=== PATIENT | female | born 1990 | race Caucasian/White ===

== ENCOUNTER 2017-12-01 17:40 | Outpatient (CLI) | payer MEDICAID ==
[2017-12-01 18:40] LABS: APPEARANCE,URINE CLEAR; BILIRUBIN,URINE NEGATIVE (NEGATIVE); COLOR,URINE STRAW; GLUCOSE, URINE NEGATIVE (NEGATIVE); KETONES,URINE NEGATIVE (NEGATIVE); LEUKOCYTE ESTERASE,URINE NEGATIVE (NEGATIVE); NITRITE,URINE NEGATIVE (NEGATIVE); PROTEIN,URINE NEGATIVE (NEGATIVE); URINE SPECIFIC GRAVITY 1.006; UROBILINOGEN,URINE NEGATIVE mg/dL (<2.0)
[2017-12-01 19:04] LABS: URINE AMPHETAMINES SCREEN NEGATIVE; URINE BARBITURATES SCREEN NEGATIVE; URINE BENZODIAZEPINES SCREEN NEGATIVE; URINE COCAINE SCREEN NEGATIVE; URINE MARIJUANA (THC) SCREEN NEGATIVE; URINE METHADONE SCREEN NEGATIVE; URINE PHENCYCLIDINE SCREEN NEGATIVE
--- NOTE | 2017-12-01 20:51 | PROGRESS NOTE E ---
Progress Note NAME: CIARA STOKES : 1990 AGE: 27Y DATE: 12/01/2017 ROOM: SUBJECTIVE: The patient is a 27-year-old 4, para 3-0-03 at 26 weeks and 6 days gestational age, presents with a chief complaint of labial swelling that has been ongoing for a couple of weeks now. The patient per nursing staff denies any vaginal bleeding, leakage of fluid, or any contractions. The patient reports good movement. The patient denies any vaginal discharge, frequency, hesitancy, or urgency with urination. The patient has a history of bipolar disorder and is currently off medication. Has never started them in . Nursing staff has conveyed to me that the patient is slightly anxious upon presentation. Nursing staff reported to me that the patient was instituted on a strip and depicted heart tones of 135 beats per minute, basal heart rate for *------* was present accelerations and absent decelerations with moderate variability. The patient was put on Tocometer as well and depicted no contractions at all. The patient's body habitus was very slim. The patient denies any contractions. The patient was just concerned about her labial swelling. Nursing staff reported to me that they examined the labia and inspection revealed no signs of infection other than a mild labial swelling consistent with increased varicosity around the labia bilaterally. The patient was given labor precautions and reassurance that given her 4 and para 3 status with previous vaginal deliveries at 26 and 6 days currently that the patient is expected to have mild labial swelling. The patient can follow up with primary [facility] in a couple of days for further follow up and further inspection. Also her urinalysis was negative for any urinary tract infection. The patient's vital signs were stable, afebrile, normotensive, not tachycardic. The patient discharged with labor precautions and will have an appropriate follow up in a couple of days with primary OBGYN. DICTATING PHYSICIAN: Peggy Donaldson MD [id number] PHY#: [id number] 2013 ID: [id number] JOB#: [id number] ACCT: [id number] cc: >
== END 2017-12-01 19:08 | disposition home or self-care (01) ==
LOC: LC 17:40
PROVIDERS: ATTEND Obstetrics & Gynecology Gynecology
PROC: 4A1HXCZ Monitoring of Products of Conception, Cardiac Rate, External Approach (ICD-10-PCS; principal; 2017-12-01)
DX: O22.12 Genital varices in pregnancy, second trimester (principal); Z3A.26 26 weeks gestation of pregnancy
CPT/HCPCS: 80307; 81001

== ENCOUNTER 2018-02-04 19:33 | Outpatient (CLI) | payer MEDICAID ==
[2018-02-04] MEDS ORDERED: RINGERS SOLUTION,LACTATED 1,000 ML IV PRN (20:05)
[2018-02-04 20:31] LABS: APPEARANCE,URINE CLEAR; BILIRUBIN,URINE NEGATIVE (NEGATIVE); COLOR,URINE COLORLESS; GLUCOSE, URINE NEGATIVE (NEGATIVE); KETONES,URINE NEGATIVE (NEGATIVE); LEUKOCYTE ESTERASE,URINE NEGATIVE (NEGATIVE); NITRITE,URINE NEGATIVE (NEGATIVE); PROTEIN,URINE NEGATIVE (NEGATIVE); URINE SPECIFIC GRAVITY 1.003; UROBILINOGEN,URINE NEGATIVE mg/dL (<2.0)
[2018-02-04 20:56] LABS: URINE AMPHETAMINES SCREEN NEGATIVE; URINE BARBITURATES SCREEN NEGATIVE; URINE BENZODIAZEPINES SCREEN NEGATIVE; URINE COCAINE SCREEN NEGATIVE; URINE MARIJUANA (THC) SCREEN NEGATIVE; URINE METHADONE SCREEN NEGATIVE; URINE PHENCYCLIDINE SCREEN NEGATIVE
[2018-02-04] MEDS ORDERED: HYDROXYZINE PAMOATE 50 MG CAPSULE PO ONE (21:21)
[2018-02-04] MEDS ORDERED: HYDROXYZINE PAMOATE 50 MG CAPSULE ONE (21:24)
--- NOTE | 2018-02-04 21:46 | Non Stress Test Report ---
Non Stress Test Datetime Report Generated by CPN: 02/04/2018 21:45 DEMOGRAPHIC Test Number: 1 EGA NST: 36.0 INDICATION Indication for Study: Ordered by Provider URINE RESULTS Urine Protein, NST: Positive Urine Ketones - NST: Negative Urine Glucose - NST: Negative Urine Blood - NST: Negative MONITORING Monitor Explained: Monitor Explained; Test Explained; Patient Verbalized Understanding Time on Monitor: 02/04/2018 20:35 Time off Monitor: 02/04/2018 21:07 NST Duration: 32 NST INTERVENTIONS NST Interventions: PO Hydration; IV Fluids; Reposition Patient Physician Notified NST: Dr. Luciano BABY A: [id number] BABY A Movement : Present Contraction Frequency : 2-5 FHR Baseline : 135 Accelerations : 15X15 Decelerations : None Variability : Moderate 6-25bpm NST Review: Meets Criteria for Reactive NST NST Review and Verified By : Max Zarate RN NST Results: Reactive NST REPORT Report Trigger: Send Report
== END 2018-02-04 21:35 | disposition home or self-care (01) ==
LOC: LC 19:33
PROVIDERS: ATTEND Obstetrics & Gynecology
PROC: 4A1HXCZ Monitoring of Products of Conception, Cardiac Rate, External Approach (ICD-10-PCS; principal; 2018-02-04)
DX: O47.03 False labor before 37 completed weeks of gestation, third trimester (principal); Z3A.36 36 weeks gestation of pregnancy
CPT/HCPCS: 59025; 81001; 80307; J3490

== ENCOUNTER 2018-02-14 20:05 | Outpatient (CLI) | payer MEDICAID ==
[2018-02-14 20:47] LABS: APPEARANCE,URINE SLIGHTLY-CLOUDY; BILIRUBIN,URINE NEGATIVE (NEGATIVE); COLOR,URINE YELLOW; GLUCOSE, URINE NEGATIVE (NEGATIVE); KETONES,URINE NEGATIVE (NEGATIVE); LEUKOCYTE ESTERASE,URINE LARGE (NEGATIVE); NITRITE,URINE NEGATIVE (NEGATIVE); PROTEIN,URINE NEGATIVE (NEGATIVE); URINE SPECIFIC GRAVITY 1.006; UROBILINOGEN,URINE NEGATIVE mg/dL (<2.0)
[2018-02-14 21:05] LABS: URINE AMPHETAMINES SCREEN NEGATIVE; URINE BARBITURATES SCREEN NEGATIVE; URINE BENZODIAZEPINES SCREEN NEGATIVE; URINE COCAINE SCREEN NEGATIVE; URINE MARIJUANA (THC) SCREEN NEGATIVE; URINE METHADONE SCREEN NEGATIVE; URINE PHENCYCLIDINE SCREEN NEGATIVE
[2018-02-14] MEDS ORDERED: HYDROXYZINE PAMOATE 50 MG CAPSULE ONE (21:33)
[2018-02-14] MEDS ORDERED: HYDROXYZINE PAMOATE 50 MG CAPSULE PO ONE (21:34)
--- NOTE | 2018-02-17 12:03 | Non Stress Test Report ---
Non Stress Test Datetime Report Generated by CPN: 02/17/2018 12:02 DEMOGRAPHIC EGA NST: 37.3 INDICATION Indication for Study: Other Indication for Study (NST) Other: labor check VITAL SIGNS Temperature - NST: 98.3 Pulse - NST: 142 RESP - NST: 16 NBPSYS NST: 134 NBPDIA NST: 84 MONITORING Monitor Explained: Monitor Explained; Test Explained; Patient Verbalized Understanding Time on Monitor: 02/14/2018 20:20 Time off Monitor: 02/14/2018 21:20 NST Duration: 60 NST INTERVENTIONS NST Interventions: None Physician Notified NST: Da Silva (Annotations: Data stored by CPN on behalf of user) BABY A: [id number] BABY A Movement : Present Contraction Frequency : 1-5 irregular FHR Baseline : 150 Accelerations : 15X15 Decelerations : None Variability : Moderate 6-25bpm NST Review: Meets Criteria for Reactive NST NST Review and Verified By : NDoyle RN NST Results: Reactive NST REPORT Report Trigger: Send Report
== END 2018-02-14 21:39 | disposition home or self-care (01) ==
LOC: LC 20:05
PROVIDERS: ATTEND Obstetrics & Gynecology Gynecology
PROC: 4A1HXCZ Monitoring of Products of Conception, Cardiac Rate, External Approach (ICD-10-PCS; principal; 2018-02-14)
DX: O47.1 False labor at or after 37 completed weeks of gestation (principal); Z3A.37 37 weeks gestation of pregnancy
CPT/HCPCS: 81005; 80307; 84112; 59025; J3490

== ENCOUNTER 2018-02-17 12:30 | Outpatient (CLI) | payer MEDICAID ==
--- NOTE | 2018-02-17 13:16 | Non Stress Test Report ---
Non Stress Test Datetime Report Generated by CPN: 02/17/2018 13:16 DEMOGRAPHIC EGA NST: 37.6 INDICATION Indication for Study: Ordered by Provider MONITORING Monitor Explained: Monitor Explained; Test Explained; Patient Verbalized Understanding Time on Monitor: 02/17/2018 12:43 Time off Monitor: 02/17/2018 13:15 NST Duration: 32 NST INTERVENTIONS NST Interventions: None Physician Notified NST: Dr Youmger BABY A Movement : Present Contraction Frequency : none FHR Baseline : 145 Accelerations : 15X15 Decelerations : None Variability : Moderate 6-25bpm NST Review: Meets Criteria for Reactive NST NST Review and Verified By : Solo Stanley RN NST Results: Reactive NST REPORT Report Trigger: Send Report
[2018-02-17 13:48] LABS: APPEARANCE,URINE CLEAR; BILIRUBIN,URINE NEGATIVE (NEGATIVE); COLOR,URINE YELLOW; GLUCOSE, URINE NEGATIVE (NEGATIVE); KETONES,URINE NEGATIVE (NEGATIVE); LEUKOCYTE ESTERASE,URINE TRACE (NEGATIVE); NITRITE,URINE NEGATIVE (NEGATIVE); PROTEIN,URINE NEGATIVE (NEGATIVE); URINE SPECIFIC GRAVITY 1.008; UROBILINOGEN,URINE NEGATIVE mg/dL (<2.0)
[2018-02-17 14:19] LABS: URINE AMPHETAMINES SCREEN NEGATIVE; URINE BARBITURATES SCREEN NEGATIVE; URINE BENZODIAZEPINES SCREEN NEGATIVE; URINE COCAINE SCREEN NEGATIVE; URINE MARIJUANA (THC) SCREEN NEGATIVE; URINE METHADONE SCREEN NEGATIVE; URINE PHENCYCLIDINE SCREEN NEGATIVE
== END 2018-02-17 13:32 | disposition home or self-care (01) ==
LOC: LC 12:30
PROVIDERS: ATTEND Obstetrics & Gynecology
PROC: 4A1HXCZ Monitoring of Products of Conception, Cardiac Rate, External Approach (ICD-10-PCS; principal; 2018-02-17)
DX: O47.1 False labor at or after 37 completed weeks of gestation (principal); Z3A.37 37 weeks gestation of pregnancy
CPT/HCPCS: 59025; 80307; 81005; 84112

== ENCOUNTER 2018-02-20 19:30 | Inpatient (IN) | payer MEDICAID ==
[2018-02-20] MEDS ORDERED: OXYTOCIN 10 UNIT/ML VIAL ONE (19:54)
[2018-02-20] MEDS ORDERED: LIDOCAINE 1% INJ-PF (10 MG/ML) 30 ML SDV ONE (19:55)
[2018-02-20] MEDS ORDERED: OXYTOCIN/NORMAL SALINE 20 UNIT/1,000 ML RTUINJ ONE (19:55)
[2018-02-20] MEDS ORDERED: MISOPROSTOL 0.2 MG TABLET ONE (19:55)
[2018-02-20 20:01] LABS: APPEARANCE,URINE CLOUDY; BILIRUBIN,URINE NEGATIVE (NEGATIVE); GLUCOSE, URINE 150 mg/dL (NEGATIVE); KETONES,URINE NEGATIVE (NEGATIVE); LEUKOCYTE ESTERASE,URINE MODERATE (NEGATIVE); NITRITE,URINE NEGATIVE (NEGATIVE); PROTEIN,URINE 100 mg/dL (NEGATIVE)
[2018-02-20] MEDS ORDERED: FENTANYL/BUPIVACAINE/NS/PF 300 MCG/150 ML RTUINJ EPI ONE (20:07)
[2018-02-20] MEDS ORDERED: EPHEDRINE SULFATE INJ 50 MG/1 ML AMPULE ONE (20:07)
[2018-02-20] MEDS ORDERED: BUPIVACAINE HCL 0.5 % INJ/PF 30 ML SDV ONE (20:08)
--- NOTE | 2018-02-20 20:13 | Admission Physical ---
Datetime Report Generated by CPN: 02/20/2018 20:13 CURRENT ADMISSION Chief Complaint: Uterine Contractions Indication for Induction: Not Applicable Admit Impression : Active Labor Admit Plan: Admit to Unit; Initiate Labor Protocol ALLERGIES Medication Allergies: No Medication Allergies: No Known Allergies (02/14/2018) Latex: No Latex Allergies Food Allergies: n/a Environmental Allergies: n/a OBSTETRICAL HISTORY EDC: 03/04/2018 00:00 : 4 Para: 3 Term: 3 : 0 SAB: 0 IAB: 0 Ectopic: 0 Livin Cesareans: 0 VBACs: 0 Multiple Births: 0 Gestational Diabetes: No Rh Sensitization: No Incompetent Cervix: No BESSY: No Infertility: No ART Treatment: No Uterine Anomaly: No IUGR: No Hx Previous C/S: No Macrosomia: No Hx Loss/Stillborn: No PIH: No Hx : No Placenta Previa/Abruption: No Depression/PP Depression: Yes PTL/PROM: No Post Hemorrhage: No Current Procedures: Ultrasound Obstetrical History Comments: G1- 37wks G2- 37wks G3- 39wks G4-current SEE RECORDS Alcohol: No Marijuana : No Cocaine: No Other Illicit Drugs: No Cigarettes: Current Some Day Smoker. [id number] MEDICAL HISTORY Diabetes: No Blood Transfusion: No Pulmonary Disease (Asthma, TB): No Breast Disease: No Hypertension: No Insurance Counselor Surgery: No Heart Disease: No Hosp/Surgery: Yes Autoimmune Disorder: No Anesthetic Complications: No Kidney Disease: No Abnormal Pap Smear: No Neuro/Epilepsy: No Psychiatric Disorders: No Other Medical Diseases: No Hepatitis/Liver Disease: No Significant Family History: No Varicosities/Phlebitis: No Trauma/Violence : No Thyroid Dysfunction: No Medical History Comments: Depression, anemia, tonsillectomy, cranial sx at 6 months INFECTIOUS HISTORY Gonorrhea: No Genital Herpes: No Chlamydia: No Tuberculosis: No Syphilis: No Hepatitis: No HIV/AIDS Exposure: No Rash or Viral Illness: No HPV: No PHYSICAL EXAM General: Normal HEENT: Normal Neurologic: Normal Thyroid: Normal Heart: Normal Lungs: Normal Breast: Deferred Back: Normal Abdomen: Normal Genitourinary Exam: Normal Extremities: Normal DTRs: Normal Pelvic Type: Adequate Vital Signs: Reviewed VAGINAL EXAM Dilatation: 7 Effacement: 80 Station: 0 MEMBRANES Pooling: Negative Membranes: Intact FETUS A EGA: 38.2 FHR- Baseline: 150 Variability: Moderate 6-25bpm FHR Category: Category I Presentation: Vertex Admit Comment: She desires an epidural. PLANS FOR LABOR AND DELIVERY Labor and Delivery: None Pain Management: Epidural Feeding Preference: Formula Benefit of Breast Feed Discussed: Yes Circumcision: Yes INFORMED CONSENT Signature: with User ID: [email or web address]
[2018-02-20 20:14] LABS: COLOR,URINE PINK
[2018-02-20 20:16] LABS: ABSOLUTE EOSINOPHILS # (AUTO) 0.1 10^3/uL (0.0-0.6); ABSOLUTE LYMPHOCYTES (AUTO) 1.1 10^3/uL (0.5-4.7); ABSOLUTE NEUT (AUTO) 12.3 10^3/uL (1.7-8.2); BASOPHILS % (AUTO) 0.2 % (0-2); EOSINOPHILS % (AUTO) 0.5 % (0-6); HEMATOCRIT 28.4 % (36.0-47.0); HEMOGLOBIN 8.9 g/dL (12.0-15.5); LYMPHOCYTES % (AUTO) 7.5 % (13-45); MEAN CORPUSCULAR HEMOGLOBIN 19.9 pg (27.0-33.4); MEAN CORPUSCULAR HGB CONC 31.5 g/dL (32.0-36.0); MONOCYTES % (AUTO) 6.9 % (3-13); PLATELET COUNT 154 10^3/uL (150-450); RED BLOOD COUNT 4.48 10^6/uL (3.72-5.28); RED CELL DISTRIBUTION WIDTH 18.3 % (11.5-14.0); SEGMENTED NEUTROPHILS % (AUTO) 84.9 % (42-78); TOTAL CELLS COUNTED % (AUTO) 100 %; WHITE BLOOD COUNT 14.5 10^3/uL (4.0-10.5)
[2018-02-20] MEDS ORDERED: PROMETHAZINE HCL INJ 25 MG/1 ML VIAL IV PRN (20:16)
[2018-02-20] MEDS ORDERED: ACETAMINOPHEN 650 MG SUPP.RECT PR PRN (20:16)
[2018-02-20] MEDS ORDERED: PROMETHAZINE HCL 25 MG TABLET PO PRN (20:16)
[2018-02-20] MEDS ORDERED: BENZOCAINE/MENTHOL AEROSOL SPRAY 56 ML TOP PRN (20:16)
[2018-02-20] MEDS ORDERED: DIBUCAINE 1% OINTMENT 28 GM TP PRN (20:16)
[2018-02-20] MEDS ORDERED: ACETAMINOPHEN WITH CODEINE #3 TABLET PO PRN ×2 (20:16)
[2018-02-20] MEDS ORDERED: PSEUDOEPHEDRINE HCL 30 MG TABLET PO PRN (20:16)
[2018-02-20] MEDS ORDERED: NA PHOS,M-B/NA PHOS,DI-BA (ADULT) 133 ML ENEMA PR PRN (20:16)
[2018-02-20] MEDS ORDERED: DIPHENHYDRAMINE HCL 25 MG CAPSULE PO PRN (20:16)
[2018-02-20] MEDS ORDERED: MAGNESIUM HYDROXIDE SUSP 30 ML UDCUP PO PRN (20:16)
[2018-02-20] MEDS ORDERED: ZOLPIDEM TARTRATE 5 MG TABLET PO PRN (20:16)
[2018-02-20] MEDS ORDERED: DIPH/PERTUSS(ACELL)/TETANUS VAC/PF 0.5 ML SYR (>=10YO) IM PRN (20:16)
[2018-02-20] MEDS ORDERED: PROMETHAZINE HCL 25 MG SUPP.RECT PR PRN (20:16)
[2018-02-20] MEDS ORDERED: MEASLES,MUMPS&RUBELLA VACC/PF 0.5 ML VIAL SUBCUT PRN (20:16)
[2018-02-20] MEDS ORDERED: GLYCERIN/WITCH HAZEL LEAF 1 EACH MED..PAD TP PRN (20:16)
[2018-02-20] MEDS ORDERED: OXYTOCIN/NORMAL SALINE 20 UNIT/1,000 ML RTUINJ IV PRN (20:16)
[2018-02-20] MEDS ORDERED: BUPIVACAINE HCL 0.25 % INJ/PF (2.5 MG/1 ML) 30 ML VIAL ONE (20:19)
[2018-02-20 20:21] LABS: URINE AMPHETAMINES SCREEN NEGATIVE; URINE BARBITURATES SCREEN NEGATIVE; URINE BENZODIAZEPINES SCREEN NEGATIVE; URINE COCAINE SCREEN NEGATIVE; URINE MARIJUANA (THC) SCREEN NEGATIVE; URINE METHADONE SCREEN NEGATIVE; URINE PHENCYCLIDINE SCREEN NEGATIVE
[2018-02-20 20:33] LABS: MEAN CORPUSCULAR VOLUME 63 fl (80-97)
[2018-02-20 20:34] LABS: ANISOCYTOSIS 2+; HYPOCHROMASIA 2+; OVALOCYTES SLIGHT; PLATELET COMMENT ADEQUATE; POLYCHROMASIA SLIGHT; TOXIC GRANULATION 1+
--- NOTE | 2018-02-21 00:22 | Delivery Summary ---
Del Sum A-C Datetime Report Generated by CPN: 02/21/2018 00:22 DELIVERY PERSONNEL DELIVERY PERSONNEL: [id number] Delivery Doctor:: Piyush Luciano MD Labor and Delivery Nurse:: Carly Cardenas RN Labor and Delivery Nurse:: Abiola Donohue RN Federal Judicial Law Clerk/CENTRIFUGAL DRIER OPERATOR: Meaghan Ngo, ENGINEERING ADMINISTRATOR MATERNAL INFORMATION Delivery Anesthesia: Epidural Medications After Delivery: Pitocin Drip 20 Units/1000ml NSS Estimated Blood Loss (ml): 125 Maternal Complications: None LABOR SUMMARY EDC: 03/04/2018 00:00 No. Babies in Womb: 1 Attempted: No Labor Anesthesia: Epidural LABOR INFORMATION Reason for Induction: Not Applicable Onset of Labor: 02/20/2018 19:40 Complete Dilatation: 02/20/2018 21:05 Oxytocin: N/A Group B Beta Strep: neg Antibiotics # of Doses: N/A Antibiotics Time of Last Dose: N/A Name of Antibiotic Given: N/A Steroids Given: None Reason Steroids Not Administered: Not Applicable MEMBRANES Membranes Rupture Method: Artificial Rupture of Membranes: 02/20/2018 20:55 Length of Rupture (hr): 0.23 Amniotic Fluid Color: Clear Amniotic Fluid Amount: Moderate Amniotic Fluid Odor: Normal STAGES OF LABOR Stage 1 hr: 1 Stage 1 min: 25 Stage 2 hr: 0 Stage 2 min: 4 Stage 3 hr: 0 Stage 3 min: 43 Total Time in Labor hr: 2 Total Time in Labor min: 12 VAGINAL DELIVERY Episiotomy: None Laceration #1: Periurethral Laceration Extension #1: N/A Laceration #2: None Laceration Extension #2: N/A Laceration #3: None Laceration Extension #3: N/A Laceration Repair: Yes Laceration Repair Note: small laceration closed with one 3-0 chromic suture Sponge Count Correct: Yes Sharps Count Correct: Yes CSECTION DELIVERY Primary Indication: N/A Secondary Indication: N/A CSection Incidence: N/A Labor: N/A Elective: N/A CSection Incision: N/A BABY A INFORMATION Infant Delivery Date/Time: 02/20/2018 21:09 Method of Delivery: Vaginal Born in Route : No : N/A Forceps: N/A Vacuum Extraction: N/A Shoulder Dystocia : No PRESENTATION/POSITION BABY A Presentation: Cephalic Cephalic Presentation: Vertex Vertex Position: Left Occipital Anterior Breech Presentation: N/A PLACENTA INFORMATION BABY A Placenta Delivery Time : 02/20/2018 21:52 Placenta Method of Delivery: Spontaneous Placenta Status: Delivered SCORES BABY A Heart Rate 1 min: >100 bpm Resp Effort 1 min: Slow, Irregular Reflex Irritability 1 min: Cough or Sneeze or Pulls Away Muscle Tone 1 min: Active Motion Color 1 min: Blue/Pale Resuscitation Effort 1 min: Tactile Stimulation SCORE 1 MIN: 7 Heart Rate 5 min: >100 bpm Resp Effort 5 min: Slow, Irregular Reflex Irritability 5 min: Cough or Sneeze or Pulls Away Muscle Tone 5 min: Active Motion Color 5 min: Body [place], Extremities Blue Resuscitation Effort 5 min: Tactile Stimulation SCORE 5 MIN: 8 INFORMATION BABY A Gestational Age at Delivery: 38.2 Gestational Status: Early Term- 37- 38.6 Weeks Infant Outcome : Liveborn Condition : Stable Sex: Male IDENTIFICATION BABY A Infant Verification Date/Time: 02/20/2018 21:38 ID Band Number: [id number] Mother's Name Verified: Yes Infant RN Verifying : S. Lattibeaudeir, RNC _ A. Misyak, RN WEIGHT/LENGTH BABY A Infant Birthweight (gm): 3520 Weight (lb): 7 Weight (oz): 12 Infant Length (in): 19.50 Infant Length (cm): 49.53 CORD INFORMATION BABY A No. Cord Vessels: 3 Nuchal Cord : N/A Cord Blood Taken: Yes-For Storage (Mom's Blood type +) Infant Suction: Mouth; Nose ASSESSMENT BABY A Infant Complications: None Physical Findings at Delivery: Bruising Infant Respirations: Grunting Pickling Machine Operator/ALS Called : No Care By: S. Lattibeachaz, RNC _ A. Misyak, RN Transferred To: [facility] BABY B INFORMATION : N/A SIGNATURES Signature: with User ID: [email or web address]
[2018-02-21] MEDS ORDERED: ACETAMINOPHEN WITH CODEINE #3 TABLET ONE (02:04)
[2018-02-21] MEDS: IBUPROFEN 800 MG TABLET PO SCH ×4 (02:25→22:07)
--- NOTE | 2018-02-21 02:50 | Warning Signs in Babies ---
VOD Warning Signs Datetime Report Generated by [facility]: 02/21/2018 02:49 VOD#608 -Warning Signs in Babies: Viewed with Parent(s)/Family (02/21/2018 02:00:Carly Cardenas RN)
[2018-02-21] MEDS: FAMOTIDINE 20 MG TABLET PO SCH ×3 (04:41→22:06)
[2018-02-21] MEDS ORDERED: IBUPROFEN 800 MG TABLET ONE (05:54)
[2018-02-21 08:06] LABS: HEMATOCRIT 26.8 % (36.0-47.0); HEMOGLOBIN 8.4 g/dL (12.0-15.5); MEAN CORPUSCULAR HEMOGLOBIN 19.9 pg (27.0-33.4); MEAN CORPUSCULAR HGB CONC 31.4 g/dL (32.0-36.0); MEAN CORPUSCULAR VOLUME 63 fl (80-97); PLATELET COUNT 150 10^3/uL (150-450); RED BLOOD COUNT 4.23 10^6/uL (3.72-5.28); WHITE BLOOD COUNT 17.3 10^3/uL (4.0-10.5)
[2018-02-21] MEDS: FERROUS SULFATE 325 MG TABLET PO SCH ×2 (10:11→18:37)
[2018-02-21] MEDS: SENNOSIDES/DOCUSATE 8.6-50 MG 1 EACH TABLET PO SCH (10:11)
[2018-02-21] MEDS: DOCUSATE SODIUM 100 MG CAPSULE PO SCH ×2 (10:11→18:37)
[2018-02-21] MEDS: PRENATAL VITAMIN W DHA CAPSULE PO SCH (10:11)
[2018-02-21 12:34] LABS: PATH REVIEW PATHOLOGIST REVIEWED
[2018-02-22] MEDS: IBUPROFEN 800 MG TABLET PO SCH (06:32)
--- NOTE | 2018-02-22 09:32 | PDOC DISCHARGE SUMMARY ---
Final Diagnosis Discharge Date: 02/22/18 - PP Day #2, doing well, states is planning on giving this baby to her sister to adopt. Sister is in the room with a baby arm band on. Bottlefeeding, A+ - Final Diagnosis (2) (normal spontaneous vaginal delivery) Is this a current diagnosis for this admission?: Yes (3) Anemia, Is this a current diagnosis for this admission?: Yes Discharge Data - Discharge Medication Prescriptions: Ferrous Sulfate [Feosol 325 mg Tablet] 325 mg PO DAILY #30 tablet Ibuprofen [Motrin 800 mg Tablet] 800 mg PO Q8 #60 tablet Home Medications: Ferrous Sulfate [Feosol 325 mg Tablet] 325 mg PO DAILY #30 tablet 02/22/18 Ibuprofen [Motrin 800 mg Tablet] 800 mg PO Q8 #60 tablet 02/22/18 Reason(s) for Admission: Onset of Labor Procedures: Ultrasound Intrapartum Procedure(s): Spontaneous Vaginal Delivery Complication(s): Laceration-Vaginal Laceration-Degree: 1st - Diagnosis Test Laboratory: Temp Pulse Resp BP Pulse Ox 98.5 F 76 16 111/76 99 02/21/18 21:07 02/21/18 21:07 02/21/18 21:07 02/21/18 21:07 02/21/18 21:07 02/20/18 02/20/18 02/21/18 19:36 19:54 07:28 RBC 4.48 4.23 Hgb 8.9 L 8.4 L Hct 28.4 L 26.8 L Urine Opiates Screen NEGATIVE - Discharge information/Instructions Discharge Activity: Activity As Tolerated, No Lifting Over 10 Pounds, Pelvic Rest Discharge Diet: As Tolerated, Regular Disposition: HOME, SELF-CARE Follow up with: [facility] in: 4, Weeks
[2018-02-22 09:45] VITALS: BP 109/67
[2018-02-22] MEDS: FAMOTIDINE 20 MG TABLET PO SCH (10:37)
[2018-02-22] MEDS: DOCUSATE SODIUM 100 MG CAPSULE PO SCH (10:37)
[2018-02-22] MEDS: PRENATAL VITAMIN W DHA CAPSULE PO SCH (10:37)
[2018-02-22] MEDS: FERROUS SULFATE 325 MG TABLET PO SCH (10:37)
[2018-02-22] MEDS: SENNOSIDES/DOCUSATE 8.6-50 MG 1 EACH TABLET PO SCH (10:37)
== END 2018-02-22 12:00 | disposition home or self-care (01) | DRG 807 ==
LOC: LC 19:30 → LR 19:42 → 2S 02-21 09:25
PROVIDERS: ADMIT Obstetrics & Gynecology; ATTEND Obstetrics & Gynecology
PROC: 10E0XZZ Delivery of Products of Conception, External Approach (ICD-10-PCS; principal; 2018-02-20)
PROC: 0HQ9XZZ Repair Perineum Skin, External Approach (ICD-10-PCS; 2018-02-20)
PROC: 10907ZC Drainage of Amniotic Fluid, Therapeutic from Products of Conception, Via Natural or Artificial Opening (ICD-10-PCS; 2018-02-20)
PROC: 4A1HXCZ Monitoring of Products of Conception, Cardiac Rate, External Approach (ICD-10-PCS; 2018-02-20)
PROC: 3E02340 Introduction of Influenza Vaccine into Muscle, Percutaneous Approach (ICD-10-PCS; 2018-02-22)
DX: O90.81 Anemia of the puerperium (principal); Z37.0 Single live birth; D64.9 Anemia, unspecified; O70.0 First degree perineal laceration during delivery; O99.334 Smoking (tobacco) complicating childbirth; F17.210 Nicotine dependence, cigarettes, uncomplicated; Z23 Encounter for immunization; Z3A.38 38 weeks gestation of pregnancy
CPT/HCPCS: 36415; 80307; 81005; 85025; 85027; 86592; 86850; 86900; 86901; 90471; 90686; 90715; 94760; G0008; J2590; J3010; J3490

== ENCOUNTER 2018-02-24 20:50 | Emergency (ER) | payer MEDICAID ==
[2018-02-24 21:32] VITALS: BP 132/84
[2018-02-24] MEDS ORDERED: METOCLOPRAMIDE HCL INJ/PF 10 MG/2 ML SDV IV ONE (22:14)
[2018-02-24] MEDS ORDERED: KETOROLAC TROMETHAMINE INJ/PF 30 MG/1 ML SDV IV ONE (22:14)
== END 2018-02-24 22:18 | disposition left against medical advice (07) ==
LOC: ER 20:50
DX: Z53.21 Procedure and treatment not carried out due to patient leaving prior to being seen by health care provider (principal)

== ENCOUNTER 2019-05-14 11:36 | Emergency (ER) | payer SELFPAY ==
--- NOTE | 2019-05-14 12:43 | ER Document Report ---
ED Medical Screen (RME) - General Chief Complaint: Laceration Stated Complaint: LACERATION TO LEFT LEG Time Seen by Provider: 05/14/19 12:36 Mode of Arrival: Ambulatory Information source: Patient Notes: 29-year-old female presents with laceration to her left thigh. Upon further assessment patient is noted to be a cutter. She has multiple lacerations to her legs. She denies suicidal ideations. Patient reports she cut herself a little bit too deep. She did try to fix it with liquid Band-Aid. Reports her tetanus is up-to-date. I have greeted and performed a rapid initial assessment of this patient. A comprehensive ED assessment and evaluation of the patient, analysis of test results and completion of the medical decision making process will be conducted by additional ED providers. TRAVEL OUTSIDE OF THE [place] IN LAST 30 DAYS: No - Related Data Allergies/Adverse Reactions: No Known Allergies Allergy (Verified 05/14/19 12:34) Past Medical History Renal/ Medical History: Denies: Hx Peritoneal Dialysis Past Surgical History: Reports: Hx Tonsillectomy Physical Exam - Vital signs Vitals: Temp Pulse Resp BP Pulse Ox 99.1 F 80 16 131/98 H 100 05/14/19 12:06 05/14/19 12:06 05/14/19 12:06 05/14/19 12:06 05/14/19 12:06 Course - Vital Signs Vital signs: Temp Pulse Resp BP Pulse Ox 99.1 F 80 16 131/98 H 100 05/14/19 12:06 05/14/19 12:06 05/14/19 12:06 05/14/19 12:06 05/14/19 12:06
--- NOTE | 2019-05-14 14:09 | ER Document Report ---
ED General - General Chief Complaint: Laceration Stated Complaint: LACERATION TO LEFT LEG Time Seen by Provider: 05/14/19 12:36 Mode of Arrival: Ambulatory TRAVEL OUTSIDE OF THE [place] IN LAST 30 DAYS: No - HPI Notes: Ms. Hicks is a 29-year-old female with past medical history of bipolar 1, anxiety, depression, and previous SI attempts, who presents today with chief complaint of left thigh laceration. She states that she was arguing with her boyfriend last night around 8 PM, and that she started to cut herself a clean knife "for attention and accidentally went too deep." She states that she has mild scrapes and cuts on the upper half of her thigh, but that the one particular laceration remains painful and red. Tetanus shot is up-to-date. she denies any fevers or chills. Patient attempted to go to work this morning, and her boss attempted to put liquid Band-Aid and dressing on the area. States that this was painful and she took off the dressings, but presented to the ED later today for concerns of infection. Of note, patient recently moved from [place] and states that she has been unable to receive all of her medications because she does not yet have insurance. No SI/HI. NO visual or auditory hallucinations. Denies any headache, fever, neck pain, URI, sore throat, chest pain, palpitations, syncope, cough, shortness of breath, wheeze, dyspnea, abdominal pain, nausea/vomiting/diarrhea, urinary retention, dysuria, hematuria, loss of control of bowel or bladder, numbness/tingling, saddle anesthesia, muscle paralysis/weakness, or rash. - Related Data Allergies/Adverse Reactions: No Known Allergies Allergy (Verified 05/14/19 12:34) Past Medical History - General Information source: Patient - Social History Smoking Status: Current Every Day Smoker Chew tobacco use (# tins/day): No Frequency of alcohol use: None Drug Abuse: None Family History: Reviewed & Not Pertinent Patient has suicidal ideation: No Patient has homicidal ideation: No Renal/ Medical History: Denies: Hx Peritoneal Dialysis Psychiatric Medical History: Reports: Hx Bipolar Disorder - not taking meds Past Surgical History: Reports: Hx Tonsillectomy Review of Systems - Review of Systems -: Yes All other systems reviewed and negative Physical Exam - Vital signs Vitals: Temp Pulse Resp BP Pulse Ox 99.1 F 80 16 131/98 H 100 05/14/19 12:05/14/19 12:05/14/19 12:05/14/19 12:05/14/19 12:06 - Notes Notes: PHYSICAL EXAMINATION: GENERAL: Well-appearing, well-nourished and in no acute distress. LUNGS: Breath sounds clear to auscultation bilaterally and equal. No wheezes rales or rhonchi. HEART: Regular rate and rhythm without murmurs, rubs, gallops. Musculoskeletal: Lt leg: FROM to passive/active. Strength 5+/5. N/V intact distal. Extremities: No cyanosis, clubbing, or edema b/l. Peripheral pulses 2+. Capillary refill less than 3 seconds. NEUROLOGICAL: Normal speech, normal gait. Normal sensory, motor exams PSYCH: Normal mood, normal affect. SKIN: Left thigh: there is a very superficial laceration noted approx 4cm long to the left anterior mid thigh. It does not extend through the full dermal layer. Course - Re-evaluation Re-evalutation: 05/14/19 15:30 Patient is an afebrile, well-hydrated, 29-year-old female who presents to the ED with a laceration to the left thigh. Vitals are acceptable. PE is otherwise unremarkable for any neurovascular compromise, obvious tendon/ligament rupture, obvious fracture/dislocation, septic joint. Patient is nontoxic-appearing and is tolerating p.o. without difficulties. Wound was thoroughly irrigated and cleansed. Wound edges were approximated appropriately utilizing 5 simple interrupted sutures. Wound dressing was placed and wound instructions reviewed. Patient tolerated procedure well without any complications. No further labs or imaging warranted. Sutures will need removed in 10 days. Recheck with your PCM in 2-3 days. Consider consult orthopedics if needed. Return to the ED with any worsening/concerning symptoms otherwise as reviewed in discharge. Patient is in agreement. Pt was eval'd by our MH team and cleared/given resources. She has no SI/HI. No visual or auditory hallucinations. Pt sought voluntary treatment of her self induced cut showing she does not want to '.' - Vital Signs Vital signs: Temp Pulse Resp BP Pulse Ox 99.1 F 80 16 131/98 H 100 05/14/19 12:05/14/19 12:06 05/14/19 12:06 05/14/19 12:06 05/14/19 12:06 Procedures - Laceration/Wound Repair Left Thigh Wound length (cm): 4 Wound's Depth, Shape: Superficial, Linear Laceration pre-procedure: Chloraprep applied Anesthetic type: Other - topical LET Wound explored: Clean, No foreign body removed Irrigated w/ Saline (mLs): 200 Wound Repaired With: Sutures Suture Size/Type: 4:0, Ethilon Number of Sutures: 5 Layer Closure?: No Post-procedure NV exam normal: Yes Complications: No Discharge - Discharge Clinical Impression: Laceration of left leg Qualifiers: Encounter type: initial encounter Qualified Code(s): S81.812A - Laceration without foreign body, left lower leg, initial encounter Condition: Stable Disposition: HOME, SELF-CARE Instructions: Soap Cleansing ([facility]) Additional Instructions: Do not shower or bathe for 24 hours. After 24 hours you may shower but no submersion of the wound under water. Keep the original dressing on the wound for 24 hours unless the drainage soaks through. Change the dressing daily thereafter and keep the knots of the suture material clean from any dried discharge. You may leave the wound open to the air once there is no more discharge. Return to the ED and/or your PCM in 2-3 days for a recheck. Monitor for any signs of worsening pain or redness, purulent drainage, streaks, and/or fever. Return to the ED if noticing any of the above symptoms or as needed. Take medications as directed. Your sutures will need to be removed in 10 days. Establish with a mental health facility. Prescriptions: Cephalexin Monohydrate [Keflex 500 mg Capsule] 500 mg PO BID #10 capsule Forms: Elevated Blood Pressure, Smoking Cessation Education, Return to Work Referrals: [facility] [Provider Group] - Follow up as needed [facility] [Provider Group] - Follow up as needed
[2019-05-14] MEDS ORDERED: LIDOCAINE 4%/TETRACAINE 0.5%/EPI 0.18% 5 ML TOPICAL SOLN TOP ONE (14:37)
--- NOTE | 2019-05-14 15:34 | PSYCHOLOGICAL NOTE ---
Psych Note - Psych Note Date seen by psych provider: 05/14/19 Time seen by psych provider: 14:20 Psych Note: Reason For Consult: Maladaptive coping skills; cutting Consent Permissions: None provided Patient is alert and orientated to person, place, time and circumstance. Mood is euthymic with congruent affect as evidenced by smiling engaging with clinician. Patient denies suicidal and homicidal ideation. Delusions are absent and behaviors congruent with an intact reality based presentation ie organized and linear thought process. Eye contact is well-maintained. Conversational speech is within normal rate, tone and prosody. Intellectual abilities appear to be within the average range. Attention and concentration are good. Insight, judgment, impulse control are fair. Impression\\plan: Patient is cleared from acute psychiatric services. Patient confirms engaging in maladaptive coping skill of cutting to the top of her thigh. She denies wanting to and reports she has no thoughts of engaging in maladaptive coping skill of cutting again. She reports regretting she cut herself because "it hurts. Patient came to [facility] ED voluntarily to ensure she was okay and would not get an infection. Patient is new to the area and had been on psychiatric medications in the past. Patient reports she does not have insurance and would like information to the local area. Behavior health team provided local Street sheet and list of area providers including mobile crisis contact information. Dr. Arora was consulted to care management of this patient; attending physicians in agreement with recommendations and disposition.
[2019-05-14 15:51] VITALS: BP 139/90
--- NOTE | 2019-05-14 17:31 | EKG REPORT ---
SEVERITY:- NORMAL ECG - SINUS RHYTHM : Confirmed by: Aris Rao 14-May-2019 17:30:34
== END 2019-05-14 15:58 | disposition home or self-care (01) ==
LOC: ER 11:36
DX: S81.812A Laceration without foreign body, left lower leg, initial encounter (principal); X78.1XXA Intentional self-harm by knife, initial encounter; F17.200 Nicotine dependence, unspecified, uncomplicated
CPT/HCPCS: 93005; 99284; 93010; 12002; J3490

== ENCOUNTER 2019-05-24 13:04 | Emergency (ER) | payer SELFPAY ==
--- NOTE | 2019-05-24 13:12 | ER Document Report ---
ED Suture/Wound Recheck - General Chief Complaint: Suture Removal Stated Complaint: SUTURE REMOVAL/LEFT LEG Time Seen by Provider: 05/24/19 13:06 Primary Care Provider: [facility] [Provider Group] - Follow up as needed [facility] [Provider Group] - Follow up as needed [facility] [Provider Group] - Follow up as needed Mode of Arrival: Ambulatory Information source: Patient TRAVEL OUTSIDE OF THE [place] IN LAST 30 DAYS: No - HPI Previous ED treatment: Laceration repair Antibiotics given previously: Prescription Quality of pain: No pain Severity: None Pain Level: Denies Context: Other Symptoms since procedure: No complaints Exacerbated by: Denies Relieved by: Denies - Related Data Allergies/Adverse Reactions: No Known Allergies Allergy (Verified 05/14/19 12:34) Past Medical History - General Information source: Patient - Social History Smoking Status: Current Every Day Smoker Cigarette use (# per day): Yes - 1 to 2 cigarettes a day Smoking Education Provided: Yes - 4 minutes Frequency of alcohol use: Occasional Drug Abuse: None Occupation: [employer] with: Family Family History: Reviewed & Not Pertinent Patient has suicidal ideation: No Patient has homicidal ideation: No - Past Medical History Cardiac Medical History: Reports: None Pulmonary Medical History: Reports: None EENT Medical History: Reports: None Neurological Medical History: Reports: None Endocrine Medical History: Reports: None Renal/ Medical History: Reports: None Malignancy Medical History: Reports: None GI Medical History: Reports: None Musculoskeletal Medical History: Reports None Skin Medical History: Reports None Psychiatric Medical History: Reports: Hx Anxiety, Hx Attention Deficit Hyperactivity Disorder, Hx Bipolar Disorder - not taking meds, Hx Depression Traumatic Medical History: Reports: None Infectious Medical History: Reports: None Past Surgical History: Reports: Hx Tonsillectomy - Immunizations Immunizations up to date: Yes Hx Diphtheria, Pertussis, Tetanus Vaccination: Yes - 2020 Review of Systems - Review of Systems Constitutional: No symptoms reported EENT: No symptoms reported Cardiovascular: No symptoms reported Respiratory: No symptoms reported Gastrointestinal: No symptoms reported Genitourinary: No symptoms reported Female Genitourinary: No symptoms reported Musculoskeletal: No symptoms reported Hematologic/Lymphatic: No symptoms reported Neurological/Psychological: No symptoms reported -: Yes All other systems reviewed and negative Physical Exam - Vital signs Vitals: Temp Pulse Resp BP Pulse Ox 98.8 F 92 14 121/90 H 98 03/21/20 13:15 05/24/19 13:15 05/24/19 13:15 05/24/19 13:15 05/24/19 13:15 Interpretation: Normal - General General appearance: Appears well, Alert - HEENT Head: Normocephalic, Atraumatic Eyes: Normal Pupils: PERRL - Respiratory Respiratory status: No respiratory distress Chest status: Nontender Breath sounds: Normal Chest palpation: Normal - Cardiovascular Rhythm: Regular Heart sounds: Normal auscultation Murmur: No - Abdominal Inspection: Normal Distension: No distension Bowel sounds: Normal Tenderness: Nontender Organomegaly: No organomegaly - Back Back: Normal, Nontender - Extremities General upper extremity: Normal inspection, Nontender, Normal color, Normal ROM, Normal temperature General lower extremity: Normal inspection, Nontender, Normal color, Normal ROM, Normal temperature, Normal weight bearing. No: Dulce's sign - Neurological Neuro grossly intact: Yes Cognition: Normal Orientation: AAOx4 [place] Coma Scale Eye Opening: Spontaneous [place] Coma Scale Verbal: Oriented Seng Coma Scale Motor: Obeys Commands Seng Coma Scale Total: 15 Speech: Normal Motor strength normal: LUE, RUE, LLE, RLE Sensory: Normal - Psychological Associated symptoms: Normal affect, Normal mood - Skin Skin Temperature: Warm Skin Moisture: Dry Skin Color: Normal Skin irregularity: Laceration - Feeling well Location of irregularity: Extremities - Left thigh Course - Re-evaluation Re-evalutation: 05/24/19 13:17 Sutures removed from the left thigh laceration. Laceration is healing well. She did complete all prescription medications. She states she is not having any pain at this time but it does itch a little. Patient was discharged home. - Vital Signs Vital signs: Temp Pulse Resp BP Pulse Ox 98.8 F 92 14 121/90 H 98 05/24/19 13:15 05/24/19 13:15 05/24/19 13:15 05/24/19 13:15 05/24/19 13:15 Discharge - Discharge Clinical Impression: Visit for suture removal Condition: Stable Disposition: HOME, SELF-CARE Instructions: Suture Removal Additional Instructions: SOAP CLEANSING: Gently wash the wound daily using a mild soap (like Ivory, Phisoderm, Neutrogena). Use warm water, rubbing gently until all debris, ooze, and crusting have been washed from the wound. Allow to dry briefly (about 10 minutes) after cleaning. Repeat this cleansing at least three times a day for the first two days and then once or twice a day. ANTIBIOTIC OINTMENT PROTECTION: Your wounds are such that dressing them is not practical or optional. After cleansing, you should apply a thin coating of antibiotic ointment (Bacitracin, not Neosporin) to the wounds at least three times daily. This lessens infection risk, and may decrease the amount of scarring. Use a q-tip or dull butter knife, not your finger, to apply this ointment. Any debris or ooze which builds up in the ointment should be gently rubbed off with a sterile gauze pad. Harder crusting may need to be gently scrubbed off with a clean wash cloth with soap and warm water, perhaps applying a warm, wet wash cloth to the wound for ten minutes first. Development of redness, severe itching, or blistering may mean allergy to the ointment. See the doctor. FOLLOW-UP CARE: If you have been referred to a physician for follow-up care, call the physicians office for an appointment as you were instructed or within the next two days. If you experience worsening or a significant change in your symptoms, notify the physician immediately or return to the Emergency Department at any time for re-evaluation. Forms: Smoking Cessation Education Referrals: [facility] [Provider Group] - Follow up as needed [facility] [Provider Group] - Follow up as needed [facility] [Provider Group] - Follow up as needed
[2019-05-24 13:17] VITALS: BP 121/90
== END 2019-05-24 13:22 | disposition home or self-care (01) ==
LOC: ER 13:04
DX: S81.812D Laceration without foreign body, left lower leg, subsequent encounter (principal); X58.XXXD Exposure to other specified factors, subsequent encounter; F17.210 Nicotine dependence, cigarettes, uncomplicated

== ENCOUNTER → 2019-08-29 | Outpatient (CLI) | payer SELFPAY | LOC: RDC 13:18 | PROVIDERS: ATTEND Nurse Practitioner Family | DX: Z03.818 Encounter for observation for suspected exposure to other biological agents ruled out (principal) | CPT/HCPCS: 87635; C9803 ==

== ENCOUNTER 2019-09-06 09:37 | Emergency (ER) | payer SELFPAY ==
--- NOTE | 2019-09-06 10:06 | ER Document Report ---
ED Medical Screen (RME) - General Chief Complaint: Dizziness Stated Complaint: DIZZINESS Time Seen by Provider: 09/06/19 10:01 Mode of Arrival: Ambulatory Information source: Patient Notes: 29-year-old female presents to ED for feeling lightheaded weak tired for the last couple weeks. She was tested on August 28- for molina virus. She does have lung nodules. She states that her last menstrual cycle was August 20, 2019. She does smoke. She is alert oriented respirations regular and unlabored at this time. I have greeted and performed a rapid initial assessment of this patient. A co mprehensive ED assessment and evaluation of the patient, analysis of test results and completion of medical decision making process will be conducted by an additional ED providers. TRAVEL OUTSIDE OF THE [place] IN LAST 30 DAYS: No - Related Data Allergies/Adverse Reactions: No Known Allergies Allergy (Verified 09/06/19 09:47) Past Medical History Psychiatric Medical History: Reports: Hx Anxiety, Hx Attention Deficit Hyperactivity Disorder, Hx Bipolar Disorder - not taking meds, Hx Depression Past Surgical History: Reports: Hx Tonsillectomy - Immunizations Immunizations up to date: Yes Hx Diphtheria, Pertussis, Tetanus Vaccination: Yes - 2019 Physical Exam - Vital signs Vitals: Temp Pulse Resp BP Pulse Ox 97.9 F 90 16 134/96 H 98 09/06/19 09:40 09/06/19 09:40 09/06/19 09:40 09/06/19 09:40 09/06/19 09:40 Course - Vital Signs Vital signs: Temp Pulse Resp BP Pulse Ox 97.9 F 80 16 134/85 H 98 09/06/19 09:40 09/06/19 10:01 09/06/19 09:40 09/06/19 10:01 09/06/19 09:40
--- NOTE | 2019-09-06 10:29 | RADIOLOGY REPORT (SQ) ---
EXAM DESCRIPTION: CHEST 2 VIEWS IMAGES COMPLETED DATE/TIME: 09/06/2019 10:13 am REASON FOR STUDY: short of breath hx anemia COMPARISON: None. EXAM PARAMETERS: NUMBER OF VIEWS: two views TECHNIQUE: Digital Frontal and Lateral radiographic views of the chest acquired. RADIATION DOSE: NA LIMITATIONS: none FINDINGS: LUNGS AND PLEURA: No opacities, masses or pneumothorax. No pleural effusion. MEDIASTINUM AND HILAR STRUCTURES: No masses or contour abnormalities. HEART AND VASCULAR STRUCTURES: Heart normal size. No evidence for failure. BONES: No acute findings. HARDWARE: None in the chest. OTHER: No other significant finding. IMPRESSION: NO ACUTE RADIOGRAPHIC FINDING IN THE CHEST. TECHNICAL DOCUMENTATION: JOB ID: [id number] 2010 [employer]- All Rights Reserved Reading location - IP/workstation name: [email or web address]
[2019-09-06 10:35] LABS: ABSOLUTE EOSINOPHILS # (AUTO) 0.2 10^3/uL (0.0-0.6); ABSOLUTE LYMPHOCYTES (AUTO) 1.4 10^3/uL (0.5-4.7); ABSOLUTE MONOCYTES (AUTO) 0.4 10^3/uL (0.1-1.4); BASOPHILS % (AUTO) 0.6 % (0-2); HEMOGLOBIN 10.5 g/dL (12.0-15.5); LYMPHOCYTES % (AUTO) 23.8 % (13-45); MEAN CORPUSCULAR HEMOGLOBIN 23.8 pg (27.0-33.4); MEAN CORPUSCULAR HGB CONC 31.9 g/dL (32.0-36.0); MEAN CORPUSCULAR VOLUME 74 fl (80-97); MONOCYTES % (AUTO) 6.2 % (3-13); PLATELET COUNT 246 10^3/uL (150-450); RED BLOOD COUNT 4.44 10^6/uL (3.72-5.28); RED CELL DISTRIBUTION WIDTH 16.1 % (11.5-14.0); SEGMENTED NEUTROPHILS % (AUTO) 66.4 % (42-78); TOTAL CELLS COUNTED % (AUTO) 100 %
[2019-09-06 11:07] LABS: APPEARANCE,URINE SLIGHTLY-CLOUDY; BILIRUBIN,URINE NEGATIVE (NEGATIVE); COLOR,URINE YELLOW; GLUCOSE, URINE NEGATIVE (NEGATIVE); KETONES,URINE NEGATIVE (NEGATIVE); LEUKOCYTE ESTERASE,URINE SMALL (NEGATIVE); NITRITE,URINE NEGATIVE (NEGATIVE); PROTEIN,URINE NEGATIVE (NEGATIVE); URINE SPECIFIC GRAVITY 1.023; UROBILINOGEN,URINE NEGATIVE mg/dL (<2.0)
[2019-09-06 12:17] LABS: CHLAM PCR NOT DETECTED (NOT DETECT)
--- NOTE | 2019-09-06 14:46 | ER Document Report ---
Entered by ILIA MAIER SCRIBE 09/06/19 1202 Acting as scribe for:FOREST BOWDEN MD ED General - General Chief Complaint: Dizziness Stated Complaint: DIZZINESS Time Seen by Provider: 09/06/19 10:01 Mode of Arrival: Ambulatory Information source: Patient Notes: This 29 year old female patient presents to the emergency department today with complaints of general weakness and lightheadedness when she stands the last x2-3 weeks. Patient states she has a history of anemia and stopped taking iron a while ago. Patient states she has a headache but this is normal, and she usually takes BC powder to relieve the pain. Patient reports her last menstrual cycle was x17 days ago, and it was heavy with blood clots. Denies any fever, chills, nausea, vomiting, or sore throat. TRAVEL OUTSIDE OF THE [place] IN LAST 30 DAYS: No - Related Data Allergies/Adverse Reactions: No Known Allergies Allergy (Verified 09/06/19 09:47) Past Medical History - General Information source: Patient - Social History Smoking Status: Current Every Day Smoker Cigarette use (# per day): Yes Frequency of alcohol use: None Family History: Reviewed & Not Pertinent Patient has homicidal ideation: No Endocrine Medical History: Reports: Other - Anemia Psychiatric Medical History: Reports: Hx Anxiety, Hx Attention Deficit Hyperactivity Disorder, Hx Bipolar Disorder - not taking meds, Hx Depression Past Surgical History: Reports: Hx Tonsillectomy - Immunizations Immunizations up to date: Yes Hx Diphtheria, Pertussis, Tetanus Vaccination: Yes - 2020 Review of Systems - Review of Systems Constitutional: See HPI, Weakness. denies: Chills, Fever EENT: See HPI. denies: Throat pain Cardiovascular: See HPI, Lightheaded Respiratory: No symptoms reported Gastrointestinal: See HPI. denies: Nausea, Vomiting Genitourinary: No symptoms reported Female Genitourinary: See HPI, Last menstrual period - x17 days ago Musculoskeletal: No symptoms reported Skin: No symptoms reported Hematologic/Lymphatic: No symptoms reported Neurological/Psychological: See HPI, Headaches -: Yes All other systems reviewed and negative Physical Exam - Vital signs Vitals: Temp Pulse Resp BP Pulse Ox 97.9 F 90 16 134/96 H 98 09/06/19 09:40 09/06/19 09:40 09/06/19 09:40 09/06/19 09:40 09/06/19 09:40 - General General appearance: Appears well, Alert - HEENT Head: Normocephalic, Atraumatic Eyes: Normal Pupils: PERRL - Respiratory Respiratory status: No respiratory distress Chest status: Nontender Breath sounds: Normal Chest palpation: Normal - Cardiovascular Rhythm: Regular Heart sounds: Normal auscultation Murmur: No - Abdominal Inspection: Normal Distension: No distension Bowel sounds: Normal Tenderness: Nontender - Extremities General upper extremity: Normal inspection. No: Edema General lower extremity: Normal inspection. No: Edema - Neurological Neuro grossly intact: Yes Cognition: Normal Orientation: AAOx4 Speech: Normal - Psychological Associated symptoms: Normal affect, Normal mood - Skin Skin Temperature: Warm Skin Moisture: Dry Skin Color: Normal Course - Re-evaluation Re-evalutation: 09/06/19 14:42 Patient resting comfortably not showing signs of distress at this time. - Vital Signs Vital signs: Temp Pulse Resp BP Pulse Ox 97.9 F 80 16 134/85 H 98 09/06/19 09:40 09/06/19 10:32 09/06/19 10:32 09/06/19 10:32 09/06/19 10:32 09/06/19 14:42 Vital signs stable no acute process. - Laboratory Result Diagrams: 09/06/19 10:05 Laboratory results interpreted by me: 09/06/19 09/06/19 10:05 10:41 Hgb 10.5 L Hct 33.0 L MCV 74 L MCH 23.8 L MCHC 31.9 L RDW 16.1 H Ur Leukocyte Esterase SMALL H 09/06/19 14:42 Laboratory values within normal limits. Small amount of urine leukocyte esterase and nitrite negative. No evidence of a urinary tract infection. Patient also had a negative chlamydia gonorrhea probe on the urine. Discharge - Discharge Clinical Impression: Generalized weakness, Chronic iron deficiency anemia Condition: Stable Disposition: HOME, SELF-CARE Additional Instructions: Anemia, Iron Deficiency You have anemia (a lower than normal amount of red blood cells). Our tests show it's due to lack of iron in your body. In infants and children, iron deficiency is usually due to lack of iron in the diet. In adults, it's most often caused by blood loss (heavy periods or intestinal bleeding) or by . If the cause of iron deficiency is not clear, we evaluate for hidden int estinal bleeding. Another possible cause is failure to absorb iron properly. Iron-deficiency is treated with iron supplements. Iron pills can upset your stomach and cause constipation. Taking it with food decreases nausea. Expect the stool to become darker (but not black). Taking iron with a juice high in vitamin C (orange juice, tomato juice) increases absorption. You can increase your dietary iron by eating liver, oysters, and lean beef; wheat germ, peas, and lentils; and molasses, dried prunes, spinach, and broccoli. Contact the doctor at once if you note black or tarry-looking stools, bloody vomiting, shortness of breath, chest pain, or faintness. Prescriptions: Ferrous Sulfate [Feosol 325 mg Tablet] 325 mg PO DAILY #30 tab I personally performed the services described in the documentation, reviewed and edited the documentation which was dictated to the scribe in my presence, and it accurately records my words and actions.
[2019-09-06 14:50] VITALS: BP 112/88
== END 2019-09-06 15:00 | disposition home or self-care (01) ==
LOC: ER 09:37
DX: D50.9 Iron deficiency anemia, unspecified (principal); R53.1 Weakness; N92.0 Excessive and frequent menstruation with regular cycle; R91.8 Other nonspecific abnormal finding of lung field
CPT/HCPCS: 36415; 71046; 81001; 84703; 85025; 87491; 87591; 99284

== ENCOUNTER 2019-09-28 11:25 | Emergency (ER) | payer SELFPAY ==
[2019-09-28 11:30] VITALS: BP 133/91
[2019-09-28] MEDS ORDERED: LIDOCAINE 1% INJ-PF (10 MG/ML) 30 ML SDV INJ ONE (13:02)
== END 2019-09-28 13:44 | disposition left against medical advice (07) ==
LOC: ER 11:25
DX: Z53.21 Procedure and treatment not carried out due to patient leaving prior to being seen by health care provider (principal)

== ENCOUNTER 2019-10-24 11:53 | Emergency (ER) | payer SELFPAY ==
[2019-10-24 12:03] VITALS: BP 127/88
[2019-10-24] MEDS ORDERED: ACETAMINOPHEN 325 MG TABLET PO ONE (12:40)
--- NOTE | 2019-10-24 12:41 | ER Document Report ---
ED Medical Screen (RME) - General Chief Complaint: Vaginal Bleeding Stated Complaint: VAGINAL BLEEDING/VAGINAL PAIN Time Seen by Provider: 10/24/19 12:35 Mode of Arrival: Ambulatory Information source: Patient Notes: HPI; 29-year-old female past medical history significant for anemia presents to the emergency room with sudden onset of vaginal bleeding while having intercourse last night. Patient is complaining of some lower pelvic pain. States "I feel like something is falling out down there" denies . Last menstrual cycle September 27, 2019. Not using control. States bleeding is slightly better today. PE: Alert and oriented x3. Mild distress noted. Lungs: Clear to auscultation without rales, rhonchi, wheezes. Heart: Regular rate rhythm without murmurs, rubs, gallops. I have greeted and performed a rapid initial assessment of this patient. A comprehensive ED assessment and evaluation of the patient, analysis of test results and completion of the medical decision making process will be conducted by additional ED providers. I have specifically instructed the patient or family members with the patient to immediately return to any nursing staff should anything change in the patient's condition or with their chief complaint. TRAVEL OUTSIDE OF THE [place] IN LAST 30 DAYS: No - Related Data Allergies/Adverse Reactions: No Known Allergies Allergy (Verified 09/06/19 09:47) Past Medical History Psychiatric Medical History: Reports: Hx Anxiety, Hx Attention Deficit Hyperactivity Disorder, Hx Bipolar Disorder - not taking meds, Hx Depression Past Surgical History: Reports: Hx Tonsillectomy - Immunizations Immunizations up to date: Yes Hx Diphtheria, Pertussis, Tetanus Vaccination: Yes - 2019 Physical Exam - Vital signs Vitals: Temp Pulse Resp BP Pulse Ox 98.5 F 88 18 127/88 H 100 10/24/19 12:10/24/19 12:10/24/19 12:10/24/19 12:10/24/19 12:01 Course - Vital Signs Vital signs: Temp Pulse Resp BP Pulse Ox 98.5 F 88 18 127/88 H 100 10/24/19 12:01 10/24/19 12:01 10/24/19 12:01 10/24/19 12:10/24/19 12:01
[2019-10-24 13:04] LABS: ABSOLUTE BASOPHILS # (AUTO) 0.1 10^3/uL (0.0-0.2); ABSOLUTE EOSINOPHILS # (AUTO) 0.2 10^3/uL (0.0-0.6); ABSOLUTE LYMPHOCYTES (AUTO) 1.9 10^3/uL (0.5-4.7); ABSOLUTE MONOCYTES (AUTO) 0.5 10^3/uL (0.1-1.4); ABSOLUTE NEUT (AUTO) 6.6 10^3/uL (1.7-8.2); BASOPHILS % (AUTO) 0.7 % (0-2); EOSINOPHILS % (AUTO) 1.8 % (0-6); HEMATOCRIT 32.1 % (36.0-47.0); HEMOGLOBIN 10.2 g/dL (12.0-15.5); MEAN CORPUSCULAR HEMOGLOBIN 22.9 pg (27.0-33.4); MEAN CORPUSCULAR HGB CONC 31.7 g/dL (32.0-36.0); MEAN CORPUSCULAR VOLUME 72 fl (80-97); MONOCYTES % (AUTO) 4.9 % (3-13); PLATELET COUNT 326 10^3/uL (150-450); RED BLOOD COUNT 4.44 10^6/uL (3.72-5.28); RED CELL DISTRIBUTION WIDTH 16.3 % (11.5-14.0); SEGMENTED NEUTROPHILS % (AUTO) 71.6 % (42-78); TOTAL CELLS COUNTED % (AUTO) 100 %; WHITE BLOOD COUNT 9.2 10^3/uL (4.0-10.5)
[2019-10-24 13:21] LABS: ALBUMIN 4.4 g/dL (3.5-5.0); ALKALINE PHOSPHATASE 55 U/L (38-126); ANION GAP 7 (5-19); APPEARANCE,URINE CLEAR; ASPARTATE AMINO TRANSFERASE 25 U/L (14-36); BILIRUBIN,TOTAL 0.3 mg/dL (0.2-1.3); BILIRUBIN,URINE NEGATIVE (NEGATIVE); BLOOD UREA NITROGEN 14 mg/dL (7-20); CALCIUM 9.1 mg/dL (8.4-10.2); CARBON DIOXIDE 27 mmol/L (22-30); CHLORIDE 106 mmol/L (98-107); COLOR,URINE YELLOW; GLUCOSE 88 mg/dL (75-110); GLUCOSE, URINE NEGATIVE (NEGATIVE); KETONES,URINE NEGATIVE (NEGATIVE); LEUKOCYTE ESTERASE,URINE NEGATIVE (NEGATIVE); NITRITE,URINE NEGATIVE (NEGATIVE); PROTEIN,URINE NEGATIVE (NEGATIVE); TOTAL PROTEIN 7.6 g/dL (6.3-8.2); URINE SPECIFIC GRAVITY 1.024; UROBILINOGEN,URINE NEGATIVE mg/dL (<2.0)
--- NOTE | 2019-10-24 16:45 | RADIOLOGY REPORT (SQ) ---
EXAM DESCRIPTION: U/S NON OB PEL TV W/DOPPLER IMAGES COMPLETED DATE/TIME: 10/24/2019 4:37 pm REASON FOR STUDY: vaginal bleeding COMPARISON: None. TECHNIQUE: Dynamic and static grayscale images acquired of the pelvis via transvaginal approach and recorded on PACS. Additional selected color Doppler and spectral images recorded. LIMITATIONS: None. FINDINGS: UTERUS: Normal in size measuring 8.6 x 6.3 x 6.0 cm. ENDOMETRIAL STRIPE: Endometrial stripe is visualized measuring 10 mm. No focal thickening. CERVIX: Cervix measures 2.2 cm. No nabothian cyst. RIGHT OVARY AND DOPPLER: Normal size measuring 3.0 x 1.5 x 1.8 cm. No worrisome masses. Normal arter ial vascular flow without evidence for torsion. LEFT OVARY AND DOPPLER: Normal size measuring 3.1 x 2.4 x 2.3 cm. . No worrisome masses. Normal gemma rial vascular flow without evidence for torsion. FREE FLUID: None noted. OTHER: No other significant finding. IMPRESSION: UNREMARKABLE TRANSVAGINAL PELVIC ULTRASOUND. TECHNICAL DOCUMENTATION: JOB ID: [id number] [employer]- All Rights Reserved Rev Reading location - IP/workstation name: [email or web address]
== END 2019-10-24 20:30 | disposition left against medical advice (07) ==
LOC: ER 11:53
DX: Z53.20 Procedure and treatment not carried out because of patient's decision for unspecified reasons (principal); N93.9 Abnormal uterine and vaginal bleeding, unspecified; R10.2 Pelvic and perineal pain; D64.9 Anemia, unspecified
CPT/HCPCS: 36415; 76830; 80053; 81001; 84703; 85025; 93976; 99284

== ENCOUNTER 2019-12-15 11:05 | Emergency (ER) | payer SELFPAY ==
--- NOTE | 2019-12-15 11:49 | ER Document Report ---
HPI - HPI Time Seen by Provider: 12/15/19 11:46 Notes: 29-year-old female patient presents emergency department chief complaint of slight nausea, upset stomach, diarrhea and all over body aches. 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 She denies any fevers, chills, cough, congestion. - REPRODUCTIVE Reproductive: DENIES: : Past Medical History - General Information source: Patient - Social History Smoking Status: Never Smoker Family History: Reviewed & Not Pertinent Psychiatric Medical History: Reports: Hx Anxiety, Hx Attention Deficit Hyperactivity Disorder, Hx Bipolar Disorder - not taking meds, Hx Depression Past Surgical History: Reports: Hx Tonsillectomy - Immunizations Immunizations up to date: Yes Hx Diphtheria, Pertussis, Tetanus Vaccination: Yes - 2019 Vertical Provider Document - CONSTITUTIONAL Notes: PHYSICAL EXAMINATION: GENERAL: Well-appearing, well-nourished and in no acute distress. HEAD: Atraumatic, normocephalic. EYES: Pupils equal round and reactive to light, extraocular movements intact, conjunctiva are normal. ENT: Nares patent, oropharynx clear without exudates. Moist mucous membranes. NECK: Normal range of motion, supple without lymphadenopathy LUNGS: Breath sounds clear to auscultation bilaterally and equal. No wheezes rales or rhonchi. HEART: Regular rate and rhythm without murmurs ABDOMEN: Soft, nontender, nondistended abdomen. No guarding, no rebound. No masses appreciated. Female : deferred Musculoskeletal: Normal range of motion, no pitting or edema. No cyanosis. NEUROLOGICAL: Cranial nerves grossly intact. Normal speech, normal gait. Normal sensory, motor exams PSYCH: Normal mood, normal affect. SKIN: Warm, Dry, normal turgor, no rashes or lesions noted. - INFECTION CONTROL TRAVEL OUTSIDE OF THE [place] IN LAST 30 DAYS: No Course - Re-evaluation Re-evalutation: 12/15/19 13:49 Laboratory investigations today are reassuring. CBC comprehensive are both negative. Influenza negative. She does have a urinary tract infection. She has now declined the COVID-19 test. She will be discharged home with a prescription for cephalexin. Urine culture pending. - Vital Signs Vital signs: Temp Pulse Resp BP Pulse Ox 98.5 F 76 18 127/91 H 100 12/15/19 11:42 12/15/19 11:42 12/15/19 11:42 12/15/19 11:42 12/15/19 11:42 - Laboratory Result Diagrams: 12/15/19 11:55 12/15/19 11:55 Discharge - Discharge Clinical Impression: Viral illness Urinary tract infection Qualifiers: Urinary tract infection type: site unspecified Hematuria presence: without anne turia Qualified Code(s): N39.0 - Urinary tract infection, site not specified Condition: Stable Disposition: HOME, SELF-CARE Additional Instructions: Please take antibiotics as prescribed for urinary tract infection. Urine culture is pending, someone will call you if there is any abnormality with this. Please return to the emergency department with new or worsening symptoms to include difficulty breathing or shortness of breath. Tylenol or ibuprofen for any fever or body aches. Prescriptions: Cephalexin [Keflex] 500 mg PO BID #14 capsule Forms: Return to Work
[2019-12-15 12:16] LABS: ABSOLUTE EOSINOPHILS # (AUTO) 0.1 10^3/uL (0.0-0.6); ABSOLUTE LYMPHOCYTES (AUTO) 1.7 10^3/uL (0.5-4.7); ABSOLUTE MONOCYTES (AUTO) 0.4 10^3/uL (0.1-1.4); ABSOLUTE NEUT (AUTO) 6.5 10^3/uL (1.7-8.2); BASOPHILS % (AUTO) 0.5 % (0-2); EOSINOPHILS % (AUTO) 1.1 % (0-6); HEMOGLOBIN 10.6 g/dL (12.0-15.5); LYMPHOCYTES % (AUTO) 19.3 % (13-45); MEAN CORPUSCULAR HEMOGLOBIN 21.4 pg (27.0-33.4); MEAN CORPUSCULAR HGB CONC 31.2 g/dL (32.0-36.0); MEAN CORPUSCULAR VOLUME 69 fl (80-97); MONOCYTES % (AUTO) 4.7 % (3-13); PLATELET COUNT 287 10^3/uL (150-450); RED BLOOD COUNT 4.96 10^6/uL (3.72-5.28); RED CELL DISTRIBUTION WIDTH 16.2 % (11.5-14.0); SEGMENTED NEUTROPHILS % (AUTO) 74.4 % (42-78); TOTAL CELLS COUNTED % (AUTO) 100 %; WHITE BLOOD COUNT 8.7 10^3/uL (4.0-10.5)
[2019-12-15 12:28] LABS: APPEARANCE,URINE CLEAR; BILIRUBIN,URINE NEGATIVE (NEGATIVE); COLOR,URINE YELLOW; GLUCOSE, URINE NEGATIVE (NEGATIVE); KETONES,URINE NEGATIVE (NEGATIVE); LEUKOCYTE ESTERASE,URINE MODERATE (NEGATIVE); NITRITE,URINE NEGATIVE (NEGATIVE); PROTEIN,URINE NEGATIVE (NEGATIVE); URINE SPECIFIC GRAVITY 1.011; UROBILINOGEN,URINE NEGATIVE mg/dL (<2.0)
[2019-12-15 12:46] LABS: ALBUMIN 4.7 g/dL (3.5-5.0); ALKALINE PHOSPHATASE 61 U/L (38-126); ANION GAP 10 (5-19); ASPARTATE AMINO TRANSFERASE 21 U/L (14-36); BILIRUBIN,DIRECT 0.2 mg/dL (0.0-0.4); BILIRUBIN,TOTAL 0.4 mg/dL (0.2-1.3); BLOOD UREA NITROGEN 12 mg/dL (7-20); CALCIUM 9.9 mg/dL (8.4-10.2); CARBON DIOXIDE 26 mmol/L (22-30); CHLORIDE 104 mmol/L (98-107); GLUCOSE 88 mg/dL (75-110); POTASSIUM 3.9 mmol/L (3.6-5.0)
[2019-12-15 13:17] LABS: A TYPE INFLUENZA AG NEGATIVE (NEGATIVE); B INFLUENZA AG NEGATIVE (NEGATIVE)
[2019-12-15 15:10] VITALS: BP 133/91
== END 2019-12-15 15:14 | disposition home or self-care (01) ==
LOC: ER 11:05
DX: B34.9 Viral infection, unspecified (principal); N39.0 Urinary tract infection, site not specified; R11.0 Nausea; R19.7 Diarrhea, unspecified
CPT/HCPCS: 36415; 80053; 81001; 83690; 85025; 87086; 87804; 99283

== ENCOUNTER 2020-03-02 12:51 | Emergency (ER) | payer SELFPAY ==
[2020-03-02 13:18] VITALS: BP 123/82
--- NOTE | 2020-03-02 14:33 | ER Document Report ---
ED Medical Screen (RME) - General Chief Complaint: Breast Lump Stated Complaint: BREAST HURT Time Seen by Provider: 03/02/20 14:16 TRAVEL OUTSIDE OF THE [place] IN LAST 30 DAYS: No - HPI Notes: 03/02/20 14:22 30-year-old female G5, P5 presents to the emergency room today for complaints of a possible left breast lump that she noticed a few days ago. Patient reports that her breast appears to be more "mainly". Reports her last menstrual cycle was February 02, 2020, she has had a few at home test that were positive and one that was negative, so she is unsure if she is . She reports that both of her nipples are pierced, she denies having any exudate from her nipples. Denies any fevers or chills. Denies any prior history of breast cancer. I have greeted and performed a rapid initial assessment of this patient. A comprehensive ED assessment and evaluation of the patient, analysis of test results and completion of the medical decision making process will be conducted by additional ED providers. PHYSICAL EXAMINATION: GENERAL: Well-appearing, well-nourished and in no acute distress. CV: s1, s2 regular LUNGS: No respiratory distress Do you lack of privacy and patient's comfort, unable to perform a breast examination on patient. The patient was evaluated during a global COVID-19 pandemic and that diagnosis was suspected/considered upon their initial presentation. Their evaluation, treatment and testing was consistent with current guidelines for patients who present with complaints or symptoms and may be related to COVID-19. 03/02/20 14:26 - Related Data Allergies/Adverse Reactions: No Known Allergies Allergy (Verified 03/02/20 14:15) Past Medical History Psychiatric Medical History: Reports: Hx Anxiety, Hx Attention Deficit Hyperactivity Disorder, Hx Bipolar Disorder - not taking meds, Hx Depression Past Surgical History: Reports: Hx Tonsillectomy - Immunizations Immunizations up to date: Yes Hx Diphtheria, Pertussis, Tetanus Vaccination: Yes - 2019 Physical Exam - Vital signs Vitals: Temp Pulse Resp BP Pulse Ox 97.9 F 92 16 123/82 98 03/02/20 13:15 03/02/20 13:15 03/02/20 13:15 03/02/20 13:15 03/02/20 13:15 Course - Vital Signs Vital signs: Temp Pulse Resp BP Pulse Ox 97.9 F 92 16 123/82 98 03/02/20 13:15 03/02/20 13:15 03/02/20 13:15 03/02/20 13:15 03/02/20 13:15
--- NOTE | 2020-03-02 15:20 | RADIOLOGY REPORT (SQ) ---
EXAM DESCRIPTION: U/S BREAST UNILATERAL LIMITED IMAGES COMPLETED DATE/TIME: 03/02/2020 3:00 pm REASON FOR STUDY: pt feels a lump at 6 o'clock on left COMPARISON: None TECHNIQUE: Static and Realtime grayscale interrogation of focal area(s) of concern in the left breas t(s) acquired. Selected color doppler/spectral images saved to PACS. LIMITATIONS: None. FINDINGS: Masses:No cystic or solid masses identified Architecture:No alteration of normal morphology. No skin thickening. No edema. Other: None. IMPRESSION: No suspicious findings detected by ultrasound. BIRAD: 1 Negative. RECOMMENDATION: RECOMMENDED FOLLOW-UP: Follow-up as clinically indicated. COMMENT: The [employer] ([employer]) has developed recommendations for screening MRI of the breasts in certain patient populations, to be used in conjunction with mammography. Breast MRI s urveillance may be appropriate for women with more than 20% lifetime risk of developing breast cancer as determined by genetic testing, significant family history of the disease, or history of mantle r adiation for Hodgkins Disease. [employer] Practice Guidelines 2008. TECHNICAL DOCUMENTATION: FINDING NUMBER: (1) ASSESSMENT: (1) JOB ID: [id number] 2010 [employer]- All Rights Reserved Reading location - IP/workstation name: [email or web address]
== END 2020-03-02 18:43 | disposition left against medical advice (07) ==
LOC: ER 12:51
DX: N63.0 Unspecified lump in unspecified breast (principal)
CPT/HCPCS: 36415; 76642; 84702; 99281